=== PATIENT | male | born 1960 | race Caucasian/White ===

== ENCOUNTER 2018-09-04 16:44 | Emergency (ER) | payer MEDICAID ==
[~2018-09-04] VITALS: Ht 165.1 cm; Wt 78.5 kg
--- NOTE | 2018-09-04 17:05 | NUR ---
SEEN AND EXAMINED BY LUBNA MILLER.
--- NOTE | 2018-09-04 17:07 | NUR ---
PT [id number], FELL FROM THE LADDER APPROXIMATELY 10 FOOT HIGH, C/O NECK, BACK, AND LLE PAIN, PT IS AAOX4, NOT IN RESPIRATORY DISTRESS, V/S STABLE, KEPT RESTED AND COMFORTABLE.
[2018-09-04] MEDS ORDERED: ONDANSETRON HCL/PF 4 MG/2 ML VIAL ONE (17:13)
[2018-09-04] MEDS ORDERED: MORPHINE SULFATE INJ 4 MG/ML DISP.SYRIN ONE (17:13)
--- NOTE | 2018-09-04 17:28 | NUR ---
IV LINE ESTABLISHED, LABS DRAWNED AND SENT TO LAB. URINE SPECIMEN COLLECTED AND SENT TO LAB.
[2018-09-04] MEDS ORDERED: MORPHINE SULFATE INJ 2 MG/ML DISP.SYRIN IV ONE (17:30)
[2018-09-04] MEDS ORDERED: IV NS 0.9% 1,000 ML BAG IV ONE (17:30)
[2018-09-04] MEDS ORDERED: ONDANSETRON HCL/PF 4 MG/2 ML VIAL IVP ONE (17:30)
[2018-09-04 17:34] LABS: APPEARANCE,URINE Clear (CLEAR); BILIRUBIN,URINE Negative (NEGATIVE); BLOOD, URINE Trace-intact Ery/uL (NEGATIVE); COLOR,URINE Yellow (YELLOW); KETONES,URINE Negative (NEGATIVE); LEUKOCYTE ESTERASE ,URINE Negative (NEGATIVE); NITRITE, URINE Negative (NEGATIVE); PH,URINE 5.5 (5.0-8.0); PROTEIN,URINE 30 mg/dl (NEGATIVE); UGLUCOSE Negative (NEGATIVE); UROBILINOGEN,URINE 0.2 EU/dL (0.2)
[2018-09-04 17:43] LABS: BACTERIA,URINE Rare /HPF (None Seen); RBC,URINE 0-2 /HPF (0-2); SQUAMOUS EPITHELIAL CELL,UR None Seen /HPF (None Seen); WBC,URINE 0-2 /HPF (0-3)
--- NOTE | 2018-09-04 17:54 | NUR ---
PT IS WHEELED TO CT SCAN VIA [facility].
--- NOTE | 2018-09-04 19:48 | NUR ---
RECEIVED REPORT FROM TAWANDA RENEE FOR KENNA
--- NOTE | 2018-09-04 19:48 | NUR ---
REPORT GIVEN TO THELMA SALAZAR FOR KENNA.
[2018-09-04] MEDS ORDERED: HYDROMORPHONE 1 MG/1 ML DISP.SYRIN IV ONE (20:00)
[2018-09-04] MEDS ORDERED: HYDROMORPHONE 1 MG/1 ML DISP.SYRIN ONE (20:24)
--- NOTE | 2018-09-04 20:42 | NUR ---
Patient discharged to home in stable condition. Written and verbal after care instructions given. Patient verbalizes understanding of instruction. IV removed. Catheter intact and site benign. Pressure and 4x4 applied to site. No bleeding noted. Pt ambulatory with a steady gait. Instructed not to drive, left with friend
[2018-09-04 22:04] VITALS: BP 137/88
== END 2018-09-04 20:41 | disposition home or self-care (01) ==
LOC: ER 16:53
DX: S22.088A Other fracture of T11-T12 vertebra, initial encounter for closed fracture (principal); S16.1XXA Strain of muscle, fascia and tendon at neck level, initial encounter; S30.0XXA Contusion of lower back and pelvis, initial encounter; S80.12XA Contusion of left lower leg, initial encounter; R51 Headache; W11.XXXA Fall on and from ladder, initial encounter; Y93.H3 Activity, building and construction; Y92.89 Other specified places as the place of occurrence of the external cause; Y99.0 Civilian activity done for income or pay
CPT/HCPCS: 70450; 71045; 72125; 72128; 72131; 72170; 73590; 81001; 96374; 96375; 99284; J1170; J2270; J2405; J7030; 81000-TC